=== PATIENT | female | born 1945 | race Caucasian/White ===

== ENCOUNTER → 2018-11-20 | Outpatient (CLI) | payer OTHER | END | disposition home or self-care (01) | LOC: BRMIMAGING 08:26 | DX: Z12.31 Encounter for screening mammogram for malignant neoplasm of breast (principal); N64.89 Other specified disorders of breast; Z80.3 Family history of malignant neoplasm of breast ==

== ENCOUNTER → 2018-12-15 | Outpatient (CLI) | payer OTHER | END | disposition home or self-care (01) | LOC: BRMIMAGING 10:21 | PROVIDERS: ATTEND Family Medicine | DX: R92.8 Other abnormal and inconclusive findings on diagnostic imaging of breast (principal); N64.89 Other specified disorders of breast; Z80.3 Family history of malignant neoplasm of breast | CPT/HCPCS: 76641-PO ==

== ENCOUNTER → 2019-01-31 | Day surgery (SDC) | payer OTHER ==
[~2019-01-31] MED LIST: BUPIVACAINE 0.5% 30 ML SDV ONE; LIDOCAINE 1% 300 MG/30 ML SDV ONE
== END | disposition home or self-care (01) ==
LOC: FIMAGING 07:14
PROVIDERS: ATTEND Family Medicine
PROC: BH00ZZZ Plain Radiography of Right Breast (ICD-10-PCS; principal; 2019-01-31)
DX: R92.8 Other abnormal and inconclusive findings on diagnostic imaging of breast (principal); Z53.29 Procedure and treatment not carried out because of patient's decision for other reasons